=== PATIENT | female | born 1995 | race Caucasian/White ===

== ENCOUNTER 2017-06-26 13:36 | Outpatient (CLI) | payer OTHER ==
[2017-06-26 13:50] LABS: MEAN CORPUSCULAR HEMOGLOBIN 30.7 pg (28.0-34.0); MEAN CORPUSCULAR VOLUME 91.2 fl (80.0-100.0)
== END 2017-06-26 13:38 ==
LOC: LAB 13:36
PROVIDERS: ATTEND Physician Assistant
DX: R53.83 Other fatigue (principal)
CPT/HCPCS: 36415; 84439; 84443; 84481; 85027

== ENCOUNTER 2019-02-22 17:32 | Outpatient (CLI) | payer BC, OTHER ==
[2019-02-22 18:04] LABS: BASOPHILS % 0.9 % (0.0-1.5); NEUTROPHILS # 5.2 # k/uL (1.4-7.7)
[2019-02-22 18:13] LABS: eGFR (Non-African) > 60
== END 2019-02-22 17:37 ==
LOC: LAB 17:32
PROVIDERS: ATTEND Family Medicine
DX: R11.0 Nausea (principal)
CPT/HCPCS: 80053; 83690; 85025

== ENCOUNTER 2019-02-24 13:56 | Outpatient (CLI) | payer BC ==
--- NOTE | 2019-02-24 17:50 | Diagnostic Imaging Report ---
PATIENT MR#: [id number] PATIENT PATIENT NAME: KELLY METZ DATE OF : 1995 REFERRING PHYSICIAN: Kody Leon EXAM DATE: 02/24/2019 ACCESSION NUMBER: [id number] EXAM DESCRIPTION: CT ABD PELVIS W/O CO CLINICAL HISTORY: RT FLANK PAIN, HEMATURIA. STOMACH PAIN FOR X2 WEEKS, N/V, DIARHHERA, BLOOD IN URINE TECHNIQUE: CT abdomen and pelvis without contrast. COMPARISON: No pertinent prior studies are available at this time. CT ABDOMEN WITHOUT CONTRAST: Lung bases: No lung base infiltrate or effusion. Liver: No intrahepatic ductal dilation. Gallbladder: Normally distended. Pancreas: No pancreatic duct dilation. Bowel loops: Nondistended. Spleen: Normal size. Adrenals: Normal size. Right kidney: No stones or hydronephrosis. Left kidney: No stones or hydronephrosis. Aorta: Normal caliber. Peritoneum: No free air. CT PELVIS WITHOUT CONTRAST: Colon: Nondistended. Appendix: Normal appendix is seen. Bladder: Normally distended. Pelvic organs: Unremarkable. Peritoneum: No fluid. Skeleton: No acute findings. IMPRESSION: No acute abdominal findings. No nephrolithiasis or hydronephrosis to explain right flank symptoms. Read by: Dr. David Nance Transcribed by: David Nance Transcribed Date: 02/24/2019 5:50:04 PM Electronically signed by: Dr. David Nance Date signed: 02/24/2019 5:50:04 PM
== END 2019-02-24 14:06 ==
LOC: RAD 13:56
PROVIDERS: ATTEND Family Medicine
DX: R10.31 Right lower quadrant pain (principal)
CPT/HCPCS: 74176